=== PATIENT | female | born 1995 | race Hispanic/Latino ===

== ENCOUNTER 2020-09-06 12:13 | Outpatient (CLI) | payer OTHER ==
[2020-09-07 05:52] LABS: SARS-CoV-2 PCR by NAA Not Detected (NotDetected)
== END 2020-09-06 12:14 | disposition home or self-care (01) ==
LOC: CSHLAB 12:13
PROVIDERS: ATTEND Family Medicine
DX: Z20.822 Contact with and (suspected) exposure to COVID-19 (principal)
CPT/HCPCS: 87635; U0003; U0005

== ENCOUNTER 2020-09-08 19:15 | Inpatient (IN) | payer MEDICAID, OTHER, SELFPAY ==
[2020-09-08 19:59] VITALS: BMI 36.7
[2020-09-08] MEDS ORDERED: Lidocaine 1% (PF) 30 ML VIAL SC PRN (20:18)
[2020-09-08] MEDS ORDERED: Diphenoxylate HCl/Atropine Tablet PO PRN (20:18)
[2020-09-08] MEDS ORDERED: Ondansetron PF 4 MG/2 ML Vial IVP PRN (20:18)
[2020-09-08] MEDS ORDERED: Ibuprofen 800 MG TAB PO PRN (20:18)
[2020-09-08] MEDS ORDERED: Misoprostol 200 MCG TAB PR PRN (20:18)
[2020-09-08] MEDS ORDERED: hydrALAZINE 20 MG/ML VIAL SLOW IVP PRN (20:18)
[2020-09-08] MEDS ORDERED: Promethazine HCl 25 MG/ML VIAL IM PRN (20:18)
[2020-09-08] MEDS ORDERED: Methylergonovine 0.2 MG/ML VIAL IM PRN (20:18)
[2020-09-08] MEDS ORDERED: HYDROcodone/Acetaminophen 5/325 mg Tablet PO PRN (20:18)
[2020-09-08] MEDS ORDERED: Carboprost 250 MCG/ML AMP IM PRN (20:18)
[2020-09-08] MEDS ORDERED: Butorphanol Tartrate 1 MG/ML VIAL SLOW IVP PRN (20:18)
[2020-09-08] MEDS ORDERED: NS w/ Oxytocin 30 units 500 ML IV PRN (20:54)
[2020-09-08] MEDS: Misoprostol 100 MCG TAB VAG SCH (21:29)
[2020-09-08 21:35] LABS: Hemoglobin 10.8 g/dL (12.0-15.5); Mean Corpuscular HGB CONC 32.7 g/dL (32.0-36.0); Mean Corpuscular Hemoglobin 28.6 pg (27.0-33.0); Mean Corpuscular Volume 87.5 fl (81.6-98.3); Mean Platelet Volume 11.5 fl (7.4-10.4); Platelet Count 185 10x3/uL (150-450); RBC Distribution Width 12.9 % (11.5-14.5); Red Blood Cell (RBC) Count 3.77 10x6/uL (3.90-5.03); White Blood Cell (WBC) Count 9.8 10x3/uL (3.5-10.5)
[2020-09-08 22:07] LABS: Hep B Surf Ag Non-Reactive S/CO (NonReactive)
[2020-09-08 22:07] LABS: Syphilis Antibody Nonreactive (Nonreactive); Syphilis Antibody Index 0.04 S/CO (<1.00 Non-Reactive)
[2020-09-08 22:09] LABS: HBSAg Index 0.14 S/CO (0-0.99)
[2020-09-09] MEDS: Misoprostol 100 MCG TAB VAG SCH ×2 (00:58→17:56)
[2020-09-09] MEDS: Lactated Ringer's 1,000 ML IV SCH ×2 (06:07→17:57)
[2020-09-09] MEDS ORDERED: NS w/ Oxytocin 30 units 500 ML ONE ×2 (07:23→10:43)
[2020-09-09] MEDS ORDERED: Fentanyl 4 mcg/Bup 0.1% Cadd 100 ML ONE (08:42)
[2020-09-09] MEDS ORDERED: Naloxone HCl 0.4 mg/ml Vial IVP PRN ×2 (12:55)
[2020-09-09] MEDS ORDERED: Acetaminophen 325 MG TAB PO PRN (12:55)
[2020-09-09] MEDS ORDERED: Eucerin (Mineral Oil/Petrolatum,White) 30 gm Jar TOP PRN (12:55)
[2020-09-09] MEDS ORDERED: diphenhydrAMINE 50 MG/ML VIAL IVP PRN (12:55)
[2020-09-09] MEDS ORDERED: Promethazine HCl 25 MG/ML VIAL IM PRN ×2 (12:55→14:26)
[2020-09-09] MEDS ORDERED: ePHEDrine 50 MG/ML VIAL SLOW IVP PRN (12:55)
[2020-09-09] MEDS ORDERED: Lactated Ringer's 500 ML IV PRN (12:55)
[2020-09-09] MEDS ORDERED: Ondansetron PF 4 MG/2 ML Vial IVP PRN ×2 (12:55→14:26)
[2020-09-09] MEDS ORDERED: Fentanyl 4 mcg/Bupivacaine 0.1% Cassette 100 ML EPIDURAL SCH (13:00)
[2020-09-09] MEDS ORDERED: Communication Order-Pharmacy FS SCH (13:00)
[2020-09-09] MEDS ORDERED: NS / Oxytocin 40 units/1000ml 1,000 ML IV SCH (14:26)
[2020-09-09] MEDS ORDERED: Bisacodyl 10 MG SUPP PR PRN (14:26)
[2020-09-09] MEDS ORDERED: diphenhydrAMINE 25 MG CAP PO PRN (14:26)
[2020-09-09] MEDS ORDERED: Milk Of Magnesia 30 ML UDCUP PO PRN (14:26)
[2020-09-09] MEDS ORDERED: Adacel (T-DAP) 0.5 ML SYRINGE IM ONE (14:26)
[2020-09-09] MEDS ORDERED: hydrALAZINE 20 MG/ML VIAL SLOW IVP PRN (14:26)
[2020-09-09] MEDS ORDERED: Benzocaine-Menthol 82.5 ML CAN TOP PRN (14:26)
[2020-09-09] MEDS ORDERED: Lanolin Ointment 7 GM TUBE TOP PRN (14:26)
[2020-09-09] MEDS ORDERED: HYDROcodone/Acetaminophen 5/325 mg Tablet PO PRN ×2 (14:26)
[2020-09-09] MEDS: Ibuprofen 800 MG TAB PO SCH ×2 (17:55→20:49)
[2020-09-09] MEDS: Ferrous Sulfate 325 MG TAB PO SCH (17:56)
[2020-09-09] MEDS ORDERED: Bupivacaine 0.25% HCL 30 ML VIAL ONE (19:41)
[2020-09-09] MEDS: Docusate Calcium (SURFAK) 240 MG CAP PO SCH (20:49)
[2020-09-10] MEDS: Ibuprofen 800 MG TAB PO SCH ×2 (05:44→13:41)
[2020-09-10] MEDS ORDERED: Prenatal Vitamin 1 TAB PO SCH (09:00)
[2020-09-10] MEDS: Ferrous Sulfate 325 MG TAB PO SCH (10:03)
[2020-09-10] MEDS: Docusate Calcium (SURFAK) 240 MG CAP PO SCH (10:04)
[2020-09-10 11:35] VITALS: BP 120/58; TEMP 98
== END 2020-09-10 16:35 | disposition home or self-care (01) | DRG 807 ==
LOC: CSHLD 19:15 → CSHPP 09-09 16:00
PROVIDERS: ADMIT Family Medicine; ATTEND Family Medicine
PROC: 10907ZC Drainage of Amniotic Fluid, Therapeutic from Products of Conception, Via Natural or Artificial Opening (ICD-10-PCS; 2020-09-08)
PROC: 10E0XZZ Delivery of Products of Conception, External Approach (ICD-10-PCS; principal; 2020-09-09)
DX: O48.0 Post-term pregnancy (principal); Z37.0 Single live birth; Z3A.40 40 weeks gestation of pregnancy; O76 Abnormality in fetal heart rate and rhythm complicating labor and delivery; Z20.822 Contact with and (suspected) exposure to COVID-19; O69.81X0 Labor and delivery complicated by cord around neck, without compression, not applicable or unspecified
CPT/HCPCS: 36415; 51702; 85027; 86780; 86850; 86900; 86901; 87340; J2590; S0020

== ENCOUNTER 2025-05-11 11:44 | Inpatient (IN) | payer MEDICAID, OTHER ==
[2025-05-11] MEDS ORDERED: Lidocaine 1% (PF) 30 ML VIAL SC PRN (21:49)
[2025-05-11] MEDS ORDERED: Diphenoxylate HCl/Atropine Tablet PO PRN (21:49)
[2025-05-11] MEDS ORDERED: Methylergonovine 0.2 MG/ML VIAL IM PRN (21:49)
[2025-05-11] MEDS ORDERED: HYDROcodone/Acetaminophen 5/325 mg Tablet PO PRN (21:49)
[2025-05-11] MEDS ORDERED: hydrALAZINE 20 MG/ML VIAL SLOW IVP PRN (21:49)
[2025-05-11] MEDS ORDERED: Ibuprofen 800 MG TAB PO PRN (21:49)
[2025-05-11] MEDS ORDERED: Carboprost 250 MCG/ML AMP IM PRN (21:49)
[2025-05-11] MEDS ORDERED: Acetaminophen 500 MG TAB PO PRN (21:49)
[2025-05-11] MEDS ORDERED: Tranexamic Acid 1,000 MG/10 ML VIAL IVP PRN (21:49)
[2025-05-11] MEDS ORDERED: Oxytocin 30 units/NS 500 ML 500 ML IV SCH (22:00)
[2025-05-11 22:28] LABS: Hematocrit 36.2 % (34.9-44.5); Hemoglobin 12.6 g/dL (12.0-15.5); Mean Corpuscular Hemoglobin 30.6 pg (27.0-33.0); Mean Corpuscular Volume 87.9 fL (81.6-98.3); Platelet Count 183 10x3/uL (150-450); Red Blood Cell (RBC) Count 4.12 10x6/uL (3.90-5.03); White Blood Cell (WBC) Count 10.47 10x3/uL (3.5-10.5)
[2025-05-11 23:04] VITALS: BMI 41.1
[2025-05-11 23:05] LABS: Syphilis Antibody Index 0.09 S/CO (<1.00 Non-Reactive)
[2025-05-11 23:06] LABS: Hep B Surf Ag - L&D Non-Reactive S/CO (NonReactive)
[2025-05-12] MEDS ORDERED: Acetaminophen 325 MG TAB PO PRN (02:52)
[2025-05-12] MEDS ORDERED: diphenhydrAMINE 50 MG/ML VIAL IVP PRN (02:52)
[2025-05-12] MEDS ORDERED: Ondansetron PF 4 MG/2 ML Vial IVP PRN ×2 (02:52→14:11)
[2025-05-12] MEDS ORDERED: fentaNYL 2 mcg/Ropivacaine 0.2% Epidural 100 ML CADD EPIDURAL SCH (03:00)
[2025-05-12] MEDS ORDERED: Communication Order-Pharmacy FS SCH (03:00)
[2025-05-12] MEDS: fentaNYL/Ropivacaine Epidural 100 ML ONE (03:04)
[2025-05-12] MEDS: Oxytocin 30 units/NS 500 ML 500 ML IV SCH (06:13)
[2025-05-12] MEDS: Ondansetron PF 4 MG/2 ML Vial IVP PRN (08:00)
[2025-05-12] MEDS ORDERED: Lidocaine 2% MPF 10 ML AMP (For Epidural Use) ONE (14:00)
[2025-05-12] MEDS ORDERED: Bupivacaine 0.25% HCL 30 ML VIAL ONE (14:00)
[2025-05-12] MEDS ORDERED: diphenhydrAMINE 25 MG CAP PO PRN (14:11)
[2025-05-12] MEDS ORDERED: hydrALAZINE 20 MG/ML VIAL SLOW IVP PRN (14:11)
[2025-05-12] MEDS ORDERED: Milk Of Magnesia 30 ML UDCUP PO PRN (14:11)
[2025-05-12] MEDS ORDERED: Bisacodyl 10 MG SUPP PR PRN (14:11)
[2025-05-12] MEDS ORDERED: HYDROcodone/Acetaminophen 5/325 mg Tablet PO PRN (14:11)
[2025-05-12] MEDS ORDERED: Lanolin Ointment 7 GM TUBE TOP PRN (14:11)
[2025-05-12] MEDS: Ibuprofen 800 MG TAB PO SCH (15:21)
[2025-05-12] MEDS: Ferrous Sulfate 325 MG TAB PO SCH (16:54)
[2025-05-13 11:32] VITALS: BP 121/69; TEMP 97.9
== END 2025-05-13 16:50 | disposition home or self-care (01) | DRG 807 ==
LOC: CSHLD 21:05 → CSHPP 05-12 14:48
PROVIDERS: ADMIT Family Medicine; ATTEND Family Medicine
PROC: 3E0P7VZ Introduction of Hormone into Female Reproductive, Via Natural or Artificial Opening (ICD-10-PCS; 2025-05-11)
PROC: 10E0XZZ Delivery of Products of Conception, External Approach (ICD-10-PCS; principal; 2025-05-12)
PROC: 4A1HXCZ Monitoring of Products of Conception, Cardiac Rate, External Approach (ICD-10-PCS; 2025-05-12)
PROC: 10907ZC Drainage of Amniotic Fluid, Therapeutic from Products of Conception, Via Natural or Artificial Opening (ICD-10-PCS; 2025-05-12)
DX: O99.214 Obesity complicating childbirth (principal); Z37.0 Single live birth; Z3A.40 40 weeks gestation of pregnancy
CPT/HCPCS: 51702; 85027; 86780; 86850; 86900; 86901; 87340; J0665; J2405; J2590; J7120